=== PATIENT | female | born 2000 | race Caucasian/White ===

== ENCOUNTER 2020-08-01 23:06 | Emergency (ER) | payer OTHER ==
[~2020-08-01] VITALS: Ht 162.6 cm; Wt 122.0 kg
[2020-08-02] MEDS ORDERED: KETOROLAC 30MG/ML VIAL IM ONE
[2020-08-02] MEDS ORDERED: CYCLOBENZAPRINE 10MG TABLET PO ONE
[2020-08-02 02:50] VITALS: BP 112/70
== END 2020-08-02 02:51 | disposition home or self-care (01) ==
LOC: ER 23:06
DX: S39.012A Strain of muscle, fascia and tendon of lower back, initial encounter (principal); E03.9 Hypothyroidism, unspecified; Z98.84 Bariatric surgery status; V43.52XA Car driver injured in collision with other type car in traffic accident, initial encounter; Y93.89 Activity, other specified; Y92.488 Other paved roadways as the place of occurrence of the external cause
CPT/HCPCS: 72131; 96372; 99284; J1885